=== PATIENT | female | born 1955 | race Caucasian/White ===

== ENCOUNTER 2020-11-10 02:10 | Emergency (ER) | payer OTHER ==
[~2020-11-10] VITALS: Ht 175.3 cm; Wt 70.0 kg
[2020-11-10] MEDS ORDERED: HYDROcodone/APAP 5/325 TABLET ONE (03:14)
[2020-11-10] MEDS ORDERED: HYDROcodone/APAP 5/325 TABLET PO ONE (03:30)
[2020-11-10] MEDS ORDERED: KETOROLAC 60 MG/2 ML ONE (04:19)
--- NOTE | 2020-11-10 04:22 | NUR ---
Verbal order 60mg toradol IM Dr Restrepo.
--- NOTE | 2020-11-10 04:26 | NUR ---
Pt c/o severe pain, crying. Ok dr orozco for toradol IM. Pt is trying to reach her family to pick her up. Pt also doesn't have keys to get into house. Pt to stay here until secures ride. Call [facility] in reach.
[2020-11-10] MEDS ORDERED: KETOROLAC 60 MG/2 ML IM ONE (04:30)
--- NOTE | 2020-11-10 04:51 | NUR ---
Pt states toradol has helped decrease a lot of her pain. Pt is still trying to reach family.
--- NOTE | 2020-11-10 05:59 | NUR ---
pt fell asleep, pt woken up to see where her ride was, pt woke up and was being emotional about her knee and how it was fractured, JESSICA nguyen called grand daughter and asked her to come pick pt up and explained what had happend and what the plan was, pts grand daughter on her way. This RN talked to pt and explained to her that this was not her fault and that she needs to see an ortho specialist. Pt stated that she had called her grand daughter but when grand daughter was called from nursing station grand daughter stated that pt said we were still waiting for results and to figure things out. Pt was told that grand daughter was not aware that she needed to come pick her up and pt immediately stopped being emotional and apologized saying, "oh i forgot."
[2020-11-10 06:17] VITALS: BP 145/88
--- NOTE | 2020-11-10 06:18 | NUR ---
Dasha here, pt dc with knee immobilizer and crutches, to car in . All parties verbalize understanding of f/u and instruct. To return to ER if worse or concerns.
== END 2020-11-10 06:30 | disposition home or self-care (01) ==
LOC: ED 06:05
DX: S72.425A Nondisplaced fracture of lateral condyle of left femur, initial encounter for closed fracture (principal); S80.212A Abrasion, left knee, initial encounter; S80.211A Abrasion, right knee, initial encounter; M25.462 Effusion, left knee; F17.200 Nicotine dependence, unspecified, uncomplicated; W01.0XXA Fall on same level from slipping, tripping and stumbling without subsequent striking against object, initial encounter; Y93.89 Activity, other specified; Y92.009 Unspecified place in unspecified non-institutional (private) residence as the place of occurrence of the external cause; Y99.8 Other external cause status
CPT/HCPCS: 29505; 73564; 96372; 99283; J1885